=== PATIENT | female | born 1960 | race African-American/Black ===

== ENCOUNTER 2017-07-01 20:58 | Emergency (ER) | payer OTHER ==
[~2017-07-01] VITALS: Ht 157.5 cm; Wt 72.6 kg
[~2017-07-01 20:58] MED LIST: ALBU8.5H8 INH; BENZ100C PO; CETI10TA22 PO; FLUT9.9S NS; METO-239 PO
[2017-07-01 21:05] VITALS: BP 146/88
--- NOTE | 2017-07-01 21:41 | PHYS DOC ---
General Chief Complaint: LOWER EXT PAIN Stated Complaint: LEFT LEG PAIN Time Seen by MD: 21:01 Source: patient Exam Limitations: no limitations Problems: History of Present Illness Initial Comments Patient is a 56-year-old female who comes to the emergency department complaining of left leg pain. Patient is a vague historian she typically follows at [facility]. She states that last week she wore some shoes she hadn't worn in a while which had some different type of insoles. After wearing she noted some medial left knee pain. She also for some knee-high boots a few days this past week which further caused some medial knee discomfort. For a few days after wearing the boots she admits that she altered the way she walked due to the knee discomfort. Today she states that the knee discomfort has resolved however she does note discomfort in her anterior quadriceps muscles also along the lateral aspect of her left thigh (IT band). Both of those areas are tender and sore with certain movements no pain while at rest. She denies any swelling or sensation of warmth to the touch and denies any specific trauma. No numbness tingling weakness or radiating symptoms. She says she saw a hairspring setter in the past who felt she might have fibromyalgia but for some reason she says that she was not diagnosed with fibromyalgia. Tonight she became anxious about the discomfort and felt she should come in for evaluation. Onset: other Severity: moderate Pain/Injury Location: left leg, left knee, left thigh Method of Injury: other Modifying Factors: worse with jarring, worse with movement, improves with rest Allergies: Coded Allergies: Penicillins (Verified Allergy, Unknown, Rash, 06/05/16) clindamycin (Verified Allergy, Unknown, Itching, 06/05/16) Past Medical History Medical History: hypertension Surgical History: noncontributory, other Social History Smoker: non-smoker Alcohol: none Drugs: none Review of Systems Constitutional: denies chills, denies diaphoresis, denies fever, denies malaise Respiratory: denies cough, denies shortness of breath, denies wheezing Cardiovascular: denies chest pain, denies edema, denies palpitations, denies syncope Gastrointestinal: denies abdominal pain, denies diarrhea, denies nausea, denies vomiting Genitourinary: denies dysuria, denies frequency, denies hematuria Musculoskeletal: see HPI, denies back pain, denies neck pain Psychiatric/Neurological: denies headache, denies numbness, denies paresthesia , denies weakness Physical Exam General Appearance: WD/WN, no apparent distress HEENT: normal ENT inspection Neck: non-tender, supple Cardiovascular/Respiratory: normal peripheral pulses, no respiratory distress Back: no CVA tenderness, no vertebral tenderness Hips: right hip non-tender, right hip normal inspection, bilateral hip normal range of motion, bilateral hip no evidence of injury, left hip other (mild tenderness at the left IT band no swelling ecchymosis or palpable deformity) Knees: right knee non-tender, right knee normal inspection, bilateral knee normal range of motion, bilateral knee no evidence of injury, left knee other ( mild medial joint line tenderness no effusion ligaments and tendon complexes are intact no bony tenderness or palpable deformity) Neurologic/Tendon: normal sensation, normal motor functions, normal tendon functions, responds to pain, no evidence tendon injury Psychiatric: alert, oriented x 3 Skin: normal color, warm/dry Orders, Labs, Meds After thorough discussion of the patient's symptoms along with her history and physical examination tonight the patient is agreeable that her footwear initiated symptoms of knee pain. The soft tissue tenderness is likely a result of altered biomechanics as the patient tried to walk without aggravating her knee. The knee is currently asymptomatic aside from some mild medial joint line tenderness and there is no indication for imaging and the patient denies any risk factors for DVT. Patient's physical exam is not consistent with DVT, I discussed the treatment options. The patient does not want any opiates she actually requests Toradol intramuscularly as she has had good results with that in the past. I discussed heating pad and stretching exercises as well as modification of footwear choices. Signs and symptoms to monitor as well as indications for urgent reevaluation were discussed and the patient's questions were answered to her satisfaction. She received Toradol 60 mg intramuscularly in the emergency department and expressed agreement and understanding with the treatment plan. Departure Time of Disposition: 21:39 Disposition: 01 HOME, SELF-CARE Diagnosis: left quadricep strain and iliotibial band syndrome Condition: GOOD Patient Instructions: Iliotibial Band Syndrome Additional Instructions: Maintain consistent footwear until symptoms resolve. Heating pad to affected area 15-20 minutes 4-6 times daily followed by gentle stretching. [id number] ibuprofen as needed for discomfort. Follow-up on Post in 1-2 weeks if not better. Return to ED with new or changing symptoms. JOSY PRADO DO Jul 01, 2017 21:41
[2017-07-01] MEDS ORDERED: KETOROLAC 60 MG/2 ML VIAL. IM ONE (22:00)
== END 2017-07-01 22:03 | disposition home or self-care (01) ==
LOC: ER 20:58
DX: S76.112A Strain of left quadriceps muscle, fascia and tendon, initial encounter (principal); M76.32 Iliotibial band syndrome, left leg; Z88.0 Allergy status to penicillin; I10 Essential (primary) hypertension; Z88.1 Allergy status to other antibiotic agents; X58.XXXA Exposure to other specified factors, initial encounter; Y93.89 Activity, other specified; Y99.8 Other external cause status; Y92.89 Other specified places as the place of occurrence of the external cause
CPT/HCPCS: 96372; 99283; J1885

== ENCOUNTER 2018-01-10 19:01 | Emergency (ER) | payer OTHER ==
[~2018-01-10] VITALS: Ht 157.5 cm; Wt 74.0 kg
[2018-01-10] MEDS ORDERED: LIDO:MAALOX 1:1 20 ML SINGLE DOSE. PO ONE (19:30)
--- NOTE | 2018-01-10 19:32 | ED.ADGEN ---
Past History Past Medical History: Hypertension, Other Past Surgical History: , Other Alcohol Use: Rarely Drug Use: Marijuana Adult General Chief Complaint Chief Complaint Abdominal burning HPI HPI Patient is a 57-year-old -A[place] female with history of hypertension and acid reflux disease who presents with intermittent daily epigastric burning after eating. Symptoms began after taking daily aspirin for leg cramps. Epigastric pain is partially relief with Tums. Epigastric pain radiates up into the chest and throat. The past 3 days, she has experienced epigastric pain before eating upon waking up. Epigastric pain is not worse with exertion. It is not associated with nausea shortness breath or sweats. Denies history of CAD. Cardiac risk factors include age, and hypertension. No prior abdominal surgeries. Patient is a nonsmoker.[] Review of Systems Review of Systems ROS as per HPI All other systems were reviewed and found to be within normal limits, except as documented in this note. Current Medications Current Medications Current Medications Medications (Trade) Dose Ordered Sig/Stefano Start Time Stop Time Status Last Admin Dose Admin Multi-Ingredient Mouthwash/Gargle (Gi Cocktail) 20 ml 1X ONCE 01/10/18 19:30 01/10/18 19:31 DC 01/10/18 19:32 20 ML Allergies Allergies Allergies Coded Allergies Type Severity Reaction Last Updated Verified Penicillins Allergy Unknown Rash 06/05/16 Yes clindamycin Allergy Unknown Itching 06/05/16 Yes Physical Exam Physical Exam Constitutional: Well developed, well nourished, no acute distress, non-toxic appearance. [] HENT: Normocephalic, atraumatic, bilateral external ears normal, oropharynx moist, no oral exudates, nose normal. [] Eyes: PERRLA, EOMI, conjunctiva normal, no discharge. [] Neck: Normal range of motion. [] Cardiovascular:Heart rate regular rhythm, no murmur [] Lungs & Thorax: Bilateral breath sounds clear to auscultation. [] Abdomen: Bowel sounds normal, soft, epigastric pain, mild tenderness to admit. [ ] Skin: Warm. [] Back: No tenderness. [] Extremities: No tenderness, no edema. [] Neurologic: Alert and oriented X 3, normal motor function, normal sensory function, no focal deficits noted. [] Psychologic: Affect normal, judgement normal, mood normal. [] Current Patient Data Vital Signs Vital Signs Date Time Temp Pulse Resp B/P (MAP) Pulse Ox O2 Delivery O2 Flow Rate FiO2 01/10/18 20:49 67 18 144/94 (111) 98 Room Air 01/10/18 19:21 98.1 Lab Results Laboratory Tests Test 01/10/18 20:10 White Blood Count 4.2 x10^3/uL (4.0-11.0) Red Blood Count 5.42 x10^6/uL (3.50-5.40) H Hemoglobin 14.1 g/dL (12.0-15.5) Hematocrit 42.5 % (36.0-47.0) Mean Corpuscular Volume 79 fL (79-100) Mean Corpuscular Hemoglobin 26 pg (25-35) Mean Corpuscular Hemoglobin Concent 33 g/dL (31-37) Red Cell Distribution Width 14.8 % (11.5-14.5) H Platelet Count 245 x10^3/uL (140-400) Neutrophils (%) (Auto) 48 % (31-73) Lymphocytes (%) (Auto) 43 % (24-48) Monocytes (%) (Auto) 7 % (0-9) Eosinophils (%) (Auto) 2 % (0-3) Basophils (%) (Auto) 1 % (0-3) Neutrophils # (Auto) 2.0 x10^3uL (1.8-7.7) Lymphocytes # (Auto) 1.8 x10^3/uL (1.0-4.8) Monocytes # (Auto) 0.3 x10^3/uL (0.0-1.1) Eosinophils # (Auto) 0.1 x10^3/uL (0.0-0.7) Basophils # (Auto) 0.0 x10^3/uL (0.0-0.2) Sodium Level 138 mmol/L (136-145) Potassium Level 3.9 mmol/L (3.5-5.1) Chloride Level 101 mmol/L (98-107) Carbon Dioxide Level 29 mmol/L (21-32) Anion Gap 8 (6-14) Blood Urea Nitrogen 11 mg/dL (7-20) Creatinine 0.7 mg/dL (0.6-1.0) Estimated GFR (Cockcroft-Gault) 104.4 BUN/Creatinine Ratio 16 (6-20) Glucose Level 112 mg/dL (70-99) H Calcium Level 9.8 mg/dL (8.5-10.1) Total Bilirubin 0.7 mg/dL (0.2-1.0) Aspartate Amino Transferase (AST) 23 U/L (15-37) Alanine Aminotransferase (ALT) 22 U/L (14-59) Alkaline Phosphatase 66 U/L (46-116) Troponin I Quantitative < 0.017 ng/mL (0-0.055) XQ-Edd-W-Type Natriuretic Peptide 21 pg/mL (0-124) Total Protein 8.0 g/dL (6.4-8.2) Albumin 3.9 g/dL (3.4-5.0) Albumin/Globulin Ratio 1.0 (1.0-1.7) EKG EKG [CT: Normal sinus rhythm, no acute ST-T wave changes, QTC normal. Interpretation by this physician.] Radiology/Procedures Radiology/Procedures [Chest x-ray: No acute cardiopulmonary disease on preliminary ED review.] Course & Med Decision Making Course & Med Decision Making Pertinent Labs and Imaging studies reviewed. (See chart for details) [Symptoms completely resolved with GI cocktail. Despite greater than 12 hours of ongoing pain, the patient's EKG troponin are unremarkable. Suspect GI's service of patient's symptoms. However, patient also describes exertional palpitations limiting her exercise activity 3 days ago. Patient does not exhibit any those symptoms today. Discussed the patient importance of following up with primary care for diffuse to her date outpatient workup. She is further recommended that exertional symptoms or palpitations return and that she must return immediately to the emergency department. Patient verbalizes understanding agreement with discharge instructions prior to departure] Final Impression Final Impression [1. Chest pain nonspecific 2 Esophagitis] Dragon Disclaimer Dragon Disclaimer This electronic medical record was generated, in whole or in part, using a voice recognition dictation system. SHWETA DUBOIS DO Jan 10, 2018 19:32
--- NOTE | 2018-01-10 20:03 | EKG ---
[address] [address] Test Date: 2018-01-10 Test Time: 19:58:11 Pat Name: LUIS ALBERTO VAZQUEZ Department: Room: Gender: F Animal Stunner: ANNA MARIE : 1960 Requested By: SHWETA DUBOIS Order Number: [id number] Reading MD: Tom Chakraborty MD Measurements Intervals [place] Rate: 62 P: 30 AL: 174 QRS: 10 QRSD: 84 T: 51 QT: 390 QTc: 398 Interpretive Statements SINUS RHYTHM Electronically Signed On 01-14-2018 10:17:00 CDT by Tom Chakraborty MD
--- NOTE | 2018-01-10 20:26 | RAD ---
AP portable chest radiograph 01/10/2018 Clinical History: Chest pain. An AP erect portable digital radiograph of the chest was obtained. Comparison study is dated 06/05/2016. The cardiac silhouette is normal in size. The thoracic aorta is mildly tortuous. No acute pulmonary infiltrate is seen. No pleural effusion or pneumothorax is noted. The osseous structures are grossly intact. Impression: No acute abnormality is seen. Electronically signed by: Evin Gil MD (01/10/2018 8:22 PM) [facility]
[2018-01-10 20:30] LABS: BASO % 1 % (0-3); EOS # 0.1 x10^3/uL (0.0-0.7); EOS % 2 % (0-3); HEMATOCRIT 42.5 % (36.0-47.0); HEMOGLOBIN 14.1 g/dL (12.0-15.5); LYMPH # 1.8 x10^3/uL (1.0-4.8); LYMPH % 43 % (24-48); MEAN CORPUSCULAR HEMOGLOBIN 26 pg (25-35); MEAN CORPUSCULAR HGB CONC 33 g/dL (31-37); MEAN CORPUSCULAR VOLUME 79 fL (79-100); MONO # 0.3 x10^3/uL (0.0-1.1); MONO % 7 % (0-9); NEUT % 48 % (31-73); PLATELET COUNT 245 x10^3/uL (140-400); RED BLOOD COUNT 5.42 x10^6/uL (3.50-5.40); RED CELL DISTRIBUTION WIDTH 14.8 % (11.5-14.5); WHITE BLOOD COUNT 4.2 x10^3/uL (4.0-11.0)
[2018-01-10 20:49] VITALS: BP 144/94
[2018-01-10 20:54] LABS: ALBUMIN 3.9 g/dL (3.4-5.0); CALCIUM 9.8 mg/dL (8.5-10.1); CREATININE 0.7 mg/dL (0.6-1.0); GFR 104.4; POTASSIUM 3.9 mmol/L (3.5-5.1); TOTAL BILIRUBIN 0.7 mg/dL (0.2-1.0)
== END 2018-01-10 21:09 | disposition home or self-care (01) ==
LOC: ER 19:01
DX: K20.9 Esophagitis, unspecified (principal); R07.89 Other chest pain; I10 Essential (primary) hypertension; Z98.890 Other specified postprocedural states; Z88.0 Allergy status to penicillin; Z88.1 Allergy status to other antibiotic agents
CPT/HCPCS: 36415; 71045; 80053; 83880; 84484; 85025; 93005; 99285

== ENCOUNTER 2019-06-17 17:57 | Emergency (ER) | payer OTHER ==
[~2019-06-17] VITALS: Ht 157.5 cm; Wt 74.0 kg
[~2019-06-17 17:57] MED LIST changes: +ALBU2.5V8 INH; -ALBU8.5H8 INH
--- NOTE | 2019-06-17 18:14 | PHYS DOC ---
Past History Past Medical History: Hypertension, Other Past Surgical History: , Other Alcohol Use: Rarely Drug Use: Marijuana Adult General Chief Complaint Chief Complaint: ALLERGIC REACTION HPI HPI 58-year-old female presents with concern for allergic reaction. 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 It contained cinnamon, pecans, soup potatoes, possibly another type of not, and some other ingredients. The patient has never been allergic to any of these. She noticed that as she was preparing it and trying some of the food, that she got a mild tingling sensation in her upper and lower lip. She thought this was all but didn't think anything of it. It did not get worse. It did not cause any difficulty breathing. They faded away on its own in less than an hour. Later in the day, when she served the treat, she ate one of them herself. Not long afterwards she started to get that tingling sensation in her mouth again. She felt like she might have some mild prominence in the right side of her throat, but denies any shortness of breath or difficulty with breathing or talking. It has not spread anywhere but her lips. She has no rash or pruritus. She just came in to be sure that she wasn't any worse. She ingested this about one hour ago. Review of Systems Review of Systems Constitutional: Denies fever or chills [] Eyes: Denies change in visual acuity, redness, or eye pain [] HENT: Denies nasal congestion or sore throat [] Respiratory: Denies cough or shortness of breath [] Cardiovascular: No additional information not addressed in HPI [] GI: Denies abdominal pain, nausea, vomiting, bloody stools or diarrhea [] : Denies dysuria or hematuria [] Musculoskeletal: Denies back pain or joint pain [] Integument: Denies rash or skin lesions [] Neurologic: Oral tingling. Denies headache, focal weakness or sensory changes [] Endocrine: Denies polyuria or polydipsia [] All other systems were reviewed and found to be within normal limits, except as documented in this note. Allergies Allergies Allergies Coded Allergies Type Severity Reaction Last Updated Verified Penicillins Allergy Unknown Rash 06/05/16 Yes clindamycin Allergy Unknown Itching 06/05/16 Yes Physical Exam Physical Exam Constitutional: Well developed, well nourished, no acute distress, non-toxic appearance. [] HENT: Normocephalic, atraumatic, bilateral external ears normal, oropharynx moist, no oral exudates, nose normal. [] Eyes: PERRLA, EOMI, conjunctiva normal, no discharge. [] Neck: Normal range of motion, no tenderness, supple, no stridor. [] Cardiovascular:Heart rate regular rhythm, no murmur [] Lungs & Thorax: Bilateral breath sounds clear to auscultation [] Abdomen: Bowel sounds normal, soft, no tenderness, no masses, no pulsatile masses. [] Skin: Warm, dry, no erythema, no rash. [] Back: No tenderness, no CVA tenderness. [] Extremities: No tenderness, no cyanosis, no clubbing, ROM intact, no edema. [] Neurologic: Alert and oriented X 3, normal motor function, normal sensory function, no focal deficits noted. [] Psychologic: Affect normal, judgement normal, mood normal. [] EKG EKG [] Radiology/Procedures Radiology/Procedures [] Course & Med Decision Making Course & Med Decision Making Pertinent Labs and Imaging studies reviewed. (See chart for details) The patient does not have any obvious systemic signs of allergic reaction. She has no urticaria or swelling or pruritus. She is having no difficulty with her airway. I will give her oral is on 60 mg and oral Benadryl 25 mg and monitor for at least another hour. If her condition worsens in any way we will get more aggressive. The patient is in agreement with this plan. After an hour of observation, the patient is feeling a bit better she is mildly in the legs but is improving. She has no feeling of neck fullness at all. She feels stable to go home. I believe discharges this time is reasonable. [] Dragon Disclaimer Dragon Disclaimer This electronic medical record was generated, in whole or in part, using a voice recognition dictation system. Departure Departure: Impression: Primary Impression: Allergic reaction to food Disposition: HOME, SELF-CARE Condition: STABLE Referrals: ALANA TYLER DO (PCP) Patient Instructions: Food Allergy, Aqyd-cy-Lhnz Problem Qualifiers Primary Impression: Allergic reaction to food Encounter type: initial encounter Qualified Codes: T78.1XXA - Other adverse food reactions, not elsewhere classified, initial encounter SHWETA LANZA DO Jun 17, 2019 18:14
[2019-06-17] MEDS ORDERED: diphenhydrAMINE HCL 25 MG CAPSULE PO ONE (18:15)
[2019-06-17] MEDS ORDERED: predniSONE 20 MG TABLET PO ONE (18:15)
[2019-06-17 19:41] VITALS: BP 137/82
== END 2019-06-17 19:42 | disposition home or self-care (01) ==
LOC: ER 17:57
DX: T78.1XXA Other adverse food reactions, not elsewhere classified, initial encounter (principal); R20.2 Paresthesia of skin; I10 Essential (primary) hypertension; Z88.0 Allergy status to penicillin; Z88.1 Allergy status to other antibiotic agents; X58.XXXA Exposure to other specified factors, initial encounter
CPT/HCPCS: 99283; J7512; Q0163

== ENCOUNTER 2019-07-14 19:48 | Emergency (ER) | payer OTHER ==
[~2019-07-14] VITALS: Ht 157.5 cm; Wt 71.7 kg
--- NOTE | 2019-07-14 19:50 | PHYS DOC ---
Past History Past Medical History: GERD, Hypertension Past Surgical History: , Other Additional Past Surgical Histo: uterine fibroids Alcohol Use: Rarely Drug Use: Marijuana Adult General Chief Complaint Chief Complaint: ".. I ve been sick since eating out ... Nausea... Diarrhea.. I am worried my electrolytes are off... " HPI HPI Patient is a 58 year old female who presents with above hx and complaints abdomen pain in epigastric right upper quadrant, nausea and diarrhea. Patient symptoms started after eating out last . Has not done well since then. Multiple loose stools a day. Patient does have a history of hypertension and prediabetes. Patient denies any trauma. Patient denies any specific ill contacts. No recent travel. No history immunosuppression. Patient normally follows with Lyn Gomez for primary. Review of Systems Review of Systems Constitutional: Denies fever or chills [] Eyes: Denies change in visual acuity, redness, or eye pain [] HENT: Denies nasal congestion or sore throat [] Respiratory: Denies cough or shortness of breath [] Cardiovascular: No additional information not addressed in HPI [] GI: Complaints of abdominal pain, nausea, diarrhea . Patient []denies vomiting, bloody stools or : Denies dysuria or hematuria [] Musculoskeletal: Denies back pain or joint pain [] Integument: Denies rash or skin lesions [] Neurologic: Denies headache, focal weakness or sensory changes [] Endocrine: Denies polyuria or polydipsia [] All other systems were reviewed and found to be within normal limits, except as documented in this note. Family History Family History Diabetes and hypertension Current Medications Current Medications See nursing for home meds Allergies Allergies Allergies Coded Allergies Type Severity Reaction Last Updated Verified Penicillins Allergy Unknown Rash 06/05/16 Yes clindamycin Allergy Unknown Itching 06/05/16 Yes Physical Exam Physical Exam Constitutional: Mild distress, non-toxic appearance. [] HENT: Normocephalic, atraumatic, bilateral external ears normal, oropharynx moist, no oral exudates, nose normal. [] Eyes: PERRLA, EOMI, conjunctiva normal, no discharge. [] Neck: Normal range of motion, no tenderness, supple, no stridor. [] Cardiovascular:Heart rate regular rhythm, no murmur [] Lungs & Thorax: Bilateral breath sounds equal at apexes on auscultation [] Abdomen: Bowel sounds hyperactive, soft, epigastric and right upper quadrant tenderness, no masses, no pulsatile masses. [] Rebound to right upper quadrant Skin: Warm, dry, no erythema, no rash. [] Back: No tenderness, no CVA tenderness. [] Extremities: No tenderness, no cyanosis, no clubbing, ROM intact, no edema. [] No true psoas sign. Neurologic: Alert and oriented X 3, normal motor function, normal sensory function, no focal deficits noted. [] Psychologic: Affect anxious, judgement normal, mood normal. [] EKG EKG Patient refuses EKG[] Radiology/Procedures Radiology/Procedures [][place] [address] IMAGING REPORT Signed PATIENT: LUIS ALBERTO VAZQUEZ ACCOUNT: [id number] : 1960 LOCATION: ER AGE: 57 SEX: F EXAM STATUS: REG ER ORD. PHYSICIAN: SHWETA DUBOIS DO REASON: CP PROCEDURE: CHEST AP ONLY AP portable chest radiograph 01/10/2018 Clinical History: Chest pain. An AP erect portable digital radiograph of the chest was obtained. Comparison study is dated 06/05/2016. The cardiac silhouette is normal in size. The thoracic aorta is mildly tortuous. No acute pulmonary infiltrate is seen. No pleural effusion or pneumothorax is noted. The osseous structures are grossly intact. Impression: No acute abnormality is seen. Electronically signed by: Evin Gil MD (01/10/2018 8:22 PM) [facility] DICTATED AND SIGNED BY: EVIN GIL MD DATE: 01/10/182020 CC: SHWETA DUBOIS DO; ALANA GOMEZ DO ~ Course & Med Decision Making Course & Med Decision Making Pertinent Labs and Imaging studies reviewed. (See chart for details) Patient remain on a clear fluid diet for the next 2 days. No solids or milk products. Must allow bowel rest. Tylenol and ibuprofen for discomfort. Follow-up primary care. Consider out patient EGD and biliary colic study. Return if any concerns. Follow-up urinary cultures. Takes Zantac 150 mg twice a day. Impression 1. Abdomen pain 2. Gastritis 3. Biliary Colic ? [] Dragon Disclaimer Dragon Disclaimer This electronic medical record was generated, in whole or in part, using a voice recognition dictation system. Departure Departure: Disposition: 01 HOME/RESIDENCE PRIOR TO ADM Condition: STABLE Referrals: ALANA GOMEZ DO (PCP) Scripts Ranitidine Hcl (ZANTAC) 150 Mg Tablet 150 MG PO BID for gastritis for 30 Days, #60 TAB Prov: TAMARA CID MD 07/14/19 Cephalexin (KEFLEX) 500 Mg Capsule 500 MG PO TID for uti, #10 BOTTLE Prov: TAMARA CID MD 07/14/19 Ravindra Disclaimer This chart was dictated in whole or in part using Voice Recognition software in a busy, high-work load, and often noisy Emergency Department environment. It may contain unintended and wholly unrecognized errors or omissions. TAMARA CID MD Jul 14, 2019 19:50
[2019-07-14 20:43] LABS: BARBITURATES NEG (NEG); BENZODIAZEPINES NEG (NEG); CANNABINOIDS NEG (NEG); COCAINE NEG (NEG); METHADONE NEG (NEG); OPIATES NEG (NEG); PHENCYCLIDINE NEG (NEG)
[2019-07-14 20:44] LABS: CLARITY,URINE CLEAR; COLOR,URINE YELLOW
[2019-07-14 20:45] LABS: AMPHETAMINE/METHAMPHETAMINE NEG (NEG); BACTERIA,URINE 0 /HPF (0-FEW); BILIRUBIN,URINE NEG (NEG); GLUCOSE,URINE NEG (NEG); NITRITE,URINE NEG (NEG); RBC,URINE OCC /HPF (0-2); SQUAMOUS EPITHELIAL CELL,UR OCC /LPF; UROBILINOGEN,URINE 0.2 mg/dL (0.2 mg/dL); WBC,URINE OCC /HPF (0-4)
[2019-07-14] MEDS ORDERED: IV RINGERS SOLUTION,LACTATED 1,000 ML IV SCH (20:49)
[2019-07-14] MEDS ORDERED: ONDANSETRON PF 4 MG/2 ML VIAL. IVP ONE (21:00)
[2019-07-14] MEDS ORDERED: KETOROLAC 30 MG/ML VIAL. IVP ONE (21:00)
[2019-07-14] MEDS ORDERED: FAMOTIDINE 20 MG/2 ML VIAL IVP ONE (21:00)
[2019-07-14 21:09] LABS: BASO % 0 % (0-3); EOS % 1 % (0-3); HEMATOCRIT 42.5 % (36.0-47.0); HEMOGLOBIN 13.5 g/dL (12.0-15.5); LYMPH # 1.6 x10^3/uL (1.0-4.8); LYMPH % 47 % (24-48); MEAN CORPUSCULAR HEMOGLOBIN 25 pg (25-35); MEAN CORPUSCULAR HGB CONC 32 g/dL (31-37); MEAN CORPUSCULAR VOLUME 80 fL (79-100); MONO # 0.3 x10^3/uL (0.0-1.1); MONO % 8 % (0-9); NEUT # 1.5 x10^3uL (1.8-7.7); NEUT % 43 % (31-73); PLATELET COUNT 219 x10^3/uL (140-400); RED CELL DISTRIBUTION WIDTH 14.6 % (11.5-14.5); WHITE BLOOD COUNT 3.5 x10^3/uL (4.0-11.0)
[2019-07-14 21:12] LABS: CALCIUM 8.8 mg/dL (8.5-10.1); CREATININE 0.7 mg/dL (0.6-1.0); POTASSIUM 3.6 mmol/L (3.5-5.1)
[2019-07-14 21:19] LABS: ALBUMIN 3.8 g/dL (3.4-5.0); DIRECT BILIRUBIN 0.2 mg/dL (0.0-0.2); TOTAL BILIRUBIN 0.7 mg/dL (0.2-1.0); TOTAL PROTEIN 7.3 g/dL (6.4-8.2)
[2019-07-14 23:02] VITALS: BP 157/64
[2019-07-14] MEDS ORDERED: RANI-376 PO (23:07)
[2019-07-14] MEDS ORDERED: CEPH-264 PO (23:07)
--- NOTE | 2019-07-15 02:52 | RAD ---
Exam: Acute abdominal series INDICATION: Chest and abdominal pain TECHNIQUE: Frontal view of the chest with upright and supine views of the abdomen Comparisons: None FINDINGS: The cardiomediastinal silhouette and pulmonary vessels are within normal limits. The lung and pleural spaces are clear. Air and stool are seen throughout the colon to level the rectum in a nonobstructive bowel gas pattern. No suspicious masses or calcifications. Visualized osseous structures are unremarkable. IMPRESSION: 1. No acute cardiopulmonary process. 2. Nonobstructive bowel gas pattern. Electronically signed by: Jaylon Solares MD (07/15/2019 2:49 AM) [facility]
== END 2019-07-14 23:23 | disposition home or self-care (01) ==
LOC: ER 19:48
DX: K29.70 Gastritis, unspecified, without bleeding (principal); K21.9 Gastro-esophageal reflux disease without esophagitis; I10 Essential (primary) hypertension; Z88.0 Allergy status to penicillin; Z88.1 Allergy status to other antibiotic agents
CPT/HCPCS: 36415; 74022; 80048; 80076; 80307; 81001; 82150; 83690; 84484; 85025; 85610; 85730; 96361; 96374; 96375; 99285; J1885; J2405; J3490; J7120

== ENCOUNTER 2020-11-24 23:31 | Emergency (ER) | payer OTHER ==
[~2020-11-24] VITALS: Ht 157.5 cm; Wt 69.7 kg
[~2020-11-24 23:31] MED LIST changes: +CEPH-264 PO; -CETI10TA22 PO; +CETI10TA74 PO; +RANI-376 PO
--- NOTE | 2020-11-25 00:29 | PHYS DOC ---
Past History Past Medical History: GERD, Hypertension Past Surgical History: Additional Past Surgical Histo: uterine fibroids, laparoscopic, c section Alcohol Use: None Drug Use: None Adult General Chief Complaint Chief Complaint: HYPERTENSION HPI HPI Patient is a 59-year-old female with a past medical history for hypertension on metoprolol who presents to the emergency department for hypertension and palpitations. States that she went to have a bowel movement and during the bowel movement felt like she was having heart palpitations. States that she is never had this happen before. Denies any headache, changes in vision, chest pain, shortness of breath, abdominal pain, nausea, vomiting, diaphoresis or syncope. States she talked her primary care physician about this who upped her metoprolol but had a second episode of this. States that currently in the emergency department she is not having the palpitations but her blood pressure was high today. Denies any recent illnesses, fevers, known ill contacts, traumas, recent travel, Covid/flu/cold symptoms. Denies any dyspnea on exertion, orthopnea, PND or edema. Review of Systems Review of Systems Constitutional: Denies fever or chills [] Eyes: Denies change in visual acuity, redness, or eye pain [] HENT: Denies nasal congestion or sore throat [] Respiratory: Denies cough or shortness of breath [] Cardiovascular: No additional information not addressed in HPI [] GI: Denies abdominal pain, nausea, vomiting, bloody stools or diarrhea [] : Denies dysuria or hematuria [] Musculoskeletal: Denies back pain or joint pain [] Integument: Denies rash or skin lesions [] Neurologic: Denies headache, focal weakness or sensory changes [] Endocrine: Denies polyuria or polydipsia [] All other systems were reviewed and found to be within normal limits, except as documented in this note. Allergies Allergies Allergies Coded Allergies Type Severity Reaction Last Updated Verified Penicillins Allergy Intermediate Rash 11/24/20 Yes clindamycin Allergy Intermediate Itching 11/24/20 Yes Physical Exam Physical Exam Constitutional: Well developed, well nourished, no acute distress, non-toxic appearance. [] HENT: Normocephalic, atraumatic, bilateral external ears normal, oropharynx moist, no oral exudates, nose normal. [] Eyes: conjunctiva normal, no discharge. [] Neck: Normal range of motion, no tenderness, supple, no stridor. [] Cardiovascular:Heart rate regular rhythm, no murmur [] Lungs & Thorax: Bilateral breath sounds clear to auscultation [] Abdomen: Bowel sounds normal, soft, no tenderness, no masses, no pulsatile masses. [] Skin: Warm, dry, no erythema, no rash. [] Back: No tenderness Extremities: No tenderness, no cyanosis, no clubbing, ROM intact, no edema. [] Neurologic: Alert and oriented X 3, normal motor function, normal sensory function, no focal deficits noted. [] Psychologic: Affect normal, judgement normal, mood normal. [] Current Patient Data Vital Signs Vital Signs Date Time Temp Pulse Resp B/P (MAP) Pulse Ox O2 Delivery O2 Flow Rate FiO2 11/24/20 23:36 98.4 80 16 190/112 (138) 98 EKG EKG EKG with a rate of 68, QRS of 84, QTc of 400, no STEMI, no arrhythmia [] Radiology/Procedures Radiology/Procedures [] INDICATION: Reason: HTN / Spl. Instructions: / History: COMPARISON: December 2017 FINDINGS: Single view of chest obtained. No focal airspace consolidation. Cardiomediastinal contour unremarkable. No acute osseous abnormality. IMPRESSION: * No focal airspace consolidation or edema. Electronically signed by: Juan Jose Butler MD (11/25/2020 12:37 AM) [id number] Heart Score C/O Chest Pain: No Risk Factors: Risk Factors: DM, Current or recent (<one month) smoker, HTN, HLP, family history of CAD, obesity. Risk Scores: Risk Factors: DM, Current or recent (<one month) smoker, HTN, HLP, family history of CAD, obesity. Course & Med Decision Making Course & Med Decision Making Patient is a 59-year-old female who presents with a hypertension and palpitations that she noticed while having a bowel movement Vital signs notable for hypertension. Physical exam noted above. EKG noted above with no arrhythmia or STEMI. Troponin normal. Laboratory analysis not concerning. Chest x-ray not concerning. On reexamination patient's blood pressure down to 129/79. Discussed all findings with patient advised to follow-up with primary care physician first thing in the morning to update on ED visit and set up a follow- up as needed Gave strict return precautions to the ED. Patient grateful, verbalized understanding and agreed with plan of discharge. [] Dragon Disclaimer Dragon Disclaimer This electronic medical record was generated, in whole or in part, using a voice recognition dictation system. Departure Departure: Impression: Primary Impression: Hypertension Additional Impression: Palpitations Referrals: ALANA TYLER DO (PCP) Patient Instructions: Hypertension, Palpitations Additional Instructions: Please read all of the attached information carefully. Please call your primary care physician first thing in the morning to update on your ED visit and set up a follow-up appointment as soon as possible. Please come back to the emergency department immediately with new or concerning symptoms as discussed. Problem Qualifiers JULIÁN MAGALLANES MD November 25, 2020 00:29
[2020-11-25 00:38] LABS: BASO % 1 % (0-3); EOS # 0.1 x10^3/uL (0.0-0.7); EOS % 1 % (0-3); HEMATOCRIT 41.8 % (36.0-47.0); HEMOGLOBIN 13.5 g/dL (12.0-15.5); LYMPH # 1.5 x10^3/uL (1.0-4.8); LYMPH % 28 % (24-48); MEAN CORPUSCULAR HEMOGLOBIN 26 pg (25-35); MEAN CORPUSCULAR HGB CONC 32 g/dL (31-37); MEAN CORPUSCULAR VOLUME 81 fL (79-100); MONO # 0.3 x10^3/uL (0.0-1.1); MONO % 6 % (0-9); NEUT # 3.6 x10^3uL (1.8-7.7); NEUT % 65 % (31-73); PLATELET COUNT 223 x10^3/uL (140-400); RED BLOOD COUNT 5.17 x10^6/uL (3.50-5.40); RED CELL DISTRIBUTION WIDTH 15.1 % (11.5-14.5); WHITE BLOOD COUNT 5.6 x10^3/uL (4.0-11.0)
--- NOTE | 2020-11-25 00:39 | RAD ---
INDICATION: Reason: HTN / Spl. Instructions: / History: COMPARISON: December 2017 FINDINGS: Single view of chest obtained. No focal airspace consolidation. Cardiomediastinal contour unremarkable. No acute osseous abnormality. IMPRESSION: * No focal airspace consolidation or edema. Electronically signed by: Juan Jose Butler MD (11/25/2020 12:37 AM) [id number]
[2020-11-25 00:43] LABS: CALCIUM 9.4 mg/dL (8.5-10.1); CREATININE 0.8 mg/dL (0.6-1.0); GFR 88.8; POTASSIUM 4.3 mmol/L (3.5-5.1)
[2020-11-25 00:49] LABS: ALBUMIN 3.8 g/dL (3.4-5.0); ALBUMIN/GLOBULIN RATIO 0.9 (1.0-1.7); TOTAL BILIRUBIN 0.8 mg/dL (0.2-1.0); TOTAL PROTEIN 7.9 g/dL (6.4-8.2)
[2020-11-25 02:39] VITALS: BP 125/76
--- NOTE | 2020-11-25 04:29 | EKG ---
[facility] [address] [place] [address] Test Date: 2020-11-24 Test Time: 23:48:15 Pat Name: LUIS ALBERTO VAZQUEZ Department: Room: Gender: F Network Strategist: THADDEUS : 1960 Requested By: JULIÁN MAGALLANES Order Number: [id number] Reading MD: Measurements Intervals Unity Rate: 68 P: 43 [place]: 174 QRS: 36 QRSD: 84 T: 64 QT: 376 QTc: 400 Interpretive Statements SINUS RHYTHM T ABNORMALITY IN HIGH LATERAL LEADS ABNORMAL ECG RI6.02 No previous ECG available for comparison
== END 2020-11-25 02:47 | disposition home or self-care (01) ==
LOC: ER 23:31
DX: I10 Essential (primary) hypertension (principal); R00.2 Palpitations; K21.9 Gastro-esophageal reflux disease without esophagitis; Z88.0 Allergy status to penicillin; Z88.1 Allergy status to other antibiotic agents
CPT/HCPCS: 36415; 71045; 80053; 83735; 84484; 85025; 93005; 99285

== ENCOUNTER 2021-09-22 04:24 | Emergency (ER) | payer OTHER ==
[~2021-09-22] VITALS: Ht 157.5 cm; Wt 72.0 kg
[2021-09-22 04:30] VITALS: BP 145/85
--- NOTE | 2021-09-22 04:34 | PHYS DOC ---
Past History Past Medical History: GERD, Hypertension Past Surgical History: Additional Past Surgical Histo: uterine fibroids, laparoscopic, c section Alcohol Use: None Drug Use: None Adult General HPI HPI Patient is a 60-year-old female with a past medical history of hypertension who presents to the emergency department with a chief complaint of headache and hypertension. States that she woke up initially with a mild whole head headache that is now resolved. States that her blood pressure at home was anywhere between 140 and 170 on the same machine. States she is taking all her me dications as prescribed. Denies any recent travels, travels, illnesses, fevers, chest pain, shortness of breath, abdominal pain, nausea, vomiting, diarrhea. Denies any numbness/weakness/tingling. States that here in the ED she is otherwise asymptomatic. 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 Review of Systems Review of Systems Review of systems otherwise unremarkable except noted in HPI Allergies Allergies Allergies Coded Allergies Type Severity Reaction Last Updated Verified Penicillins Allergy Intermediate Rash 11/24/20 Yes clindamycin Allergy Intermediate Itching 11/24/20 Yes Physical Exam Physical Exam Constitutional: Well developed, well nourished, no acute distress, non-toxic appearance. [] HENT: Normocephalic, atraumatic, bilateral external ears normal, oropharynx moist, no oral exudates, nose normal. [] Eyes: PERRLA, EOMI, conjunctiva normal, no discharge. [] Neck: Normal range of motion, no tenderness, supple, no stridor. [] Cardiovascular:Heart rate regular rhythm, no murmur [] Lungs & Thorax: Bilateral breath sounds clear to auscultation [] Skin: Warm, dry, no erythema, no rash. [] Extremities: No tenderness, no cyanosis, no clubbing, ROM intact, no edema. [] Neurologic: Alert and oriented X 3, normal motor function, normal sensory function, able to sit, stand and walk without issue no focal deficits noted. [] Psychologic: Affect normal, judgement normal, mood normal. [] EKG EKG [] Radiology/Procedures Radiology/Procedures [] Heart Score C/O Chest Pain: No Risk Factors: Risk Factors: DM, Current or recent (<one month) smoker, HTN, HLP, family history of CAD, obesity. Risk Scores: Risk Factors: DM, Current or recent (<one month) smoker, HTN, HLP, family history of CAD, obesity. Course & Med Decision Making Course & Med Decision Making Patient is a 60-year-old female with hypertension who presents with a chief complaint of hypertension and headache Vital signs not concerning other than a blood pressure 147/92. Discussed blood pressure with patient. Discussed blood pressure machine and and making sure they were on the new sliding to be careful as they can become on calibrated. Offered medicine for headache, but patient stated headache is completely resolved and she was okay to go home as she has an appointment tomorrow with her office rental clerk. Gave strict return precautions to the ED. Advised to follow-up with primary care physician as well. Patient very grateful, verbalized understanding and agreed with plan of discharge. Dragon Disclaimer Dragon Disclaimer This electronic medical record was generated, in whole or in part, using a voice recognition dictation system. Departure Departure: Impression: Primary Impression: Hypertension Additional Impression: Headache Disposition: HOME / SELF CARE / HOMELESS Condition: STABLE Referrals: ALANA TYLER DO (PCP) Patient Instructions: General Headache Without Cause, Hypertension Additional Instructions: Thanks for coming into the emergency department tonight and allowing us to take care of you. Please read all the attached information carefully or things we discussed. You can begin Tylenol, ibuprofen and Benadryl regimen as needed. Please take all your medications as prescribed. Please be sure to stay well- hydrated and eat at least 3 nutritious meals daily and take a One-A-Day vitamin. Please discuss your ED visits with your primary care physician and need for any further management and medications, diet or exercise. Please come back to the ED with new or concerning symptoms as discussed. Problem Qualifiers JULIÁN MAGALLANES MD Sep 22, 2021 04:34
== END 2021-09-22 04:55 | disposition home or self-care (01) ==
LOC: ER 04:24
DX: I10 Essential (primary) hypertension (principal); K21.9 Gastro-esophageal reflux disease without esophagitis; Z98.890 Other specified postprocedural states; Z88.0 Allergy status to penicillin; Z88.1 Allergy status to other antibiotic agents
CPT/HCPCS: 99282